=== PATIENT | male | born 1950 | race Caucasian/White ===

== ENCOUNTER 2017-05-24 13:30 | Inpatient (IN) ==
[2017-05-24 17:03] LABS: MANUAL DIFF NEEDED? NO
--- NOTE | 2017-05-24 17:05 | Diag Imaging Result Doc PS360 ---
EXAM: CHEST-PORTABLE HISTORY: dyspnea TECHNIQUE: Portable upright COMPARISON: None. FINDINGS: Sternal wires are present. The lungs are well expanded. The heart is borderline mildly prominent. The vessels are not distended. No consolidation. No pleural effusions identified. IMPRESSION: Negative chest. Electronically signed by Agapito Tamayo 05/24/2017 5:03 PM
[2017-05-24 17:08] LABS: BASO% 0.3 % (0.0-0.8); EOS# 0.57 X1000 (0.0-0.7); HEMATOCRIT 41.4 % (42.0-52.0); IMM GRAN# 0.05 X1000 (0.0-0.04); IMM GRAN% 0.5 % (0.0-0.5); LYMPH# 1.85 X1000 (1.2-3.4); LYMPH% 19.4 % (20.5-51.1); MCH 27.5 PG (27-31); MCHC 33.8 g/dL (33-37); MCV 81.2 FL (81-99); MONO# 0.65 X1000 (0.11-0.59); MONO% 6.8 % (1.7-9.3); MPV 8.8 FL (7.4-10.4); PLT 310 X1000 (130-400)
[2017-05-24 17:19] LABS: HEMOGLOBIN A1C 8.6 % (4.8-6.0)
[2017-05-24 17:25] LABS: ALBUMIN 3.4 g/dL (3.5-5.0); CALCIUM 9.2 mg/dL (8.8-10.2); POTASSIUM 3.9 mmol/L (3.5-5.1); TOTAL BILIRUBIN 0.46 mg/dL (0.20-1.00); TOTAL PROTEIN 7.6 g/dL (6.3-8.3)
[2017-05-24 17:40] LABS: FREE T4 1.29 ng/dL (0.93-1.70)
[2017-05-24] MEDS: DILAUDID IV PRN (18:04)
[2017-05-24 18:08] LABS: VITAMIN D 25 HYDROXY 27.8 NG/DL
[2017-05-24 18:10] LABS: SED RATE 40 mm/hr (0-15)
[2017-05-24] MEDS ORDERED: VANCOMYCIN IV PER PHARMACY MISC SCH (18:15)
[2017-05-24] MEDS: TYLENOL PO PRN (19:02)
[2017-05-24] MEDS: ZOSYN 3.375 GM in NS 50 ML IV SCH (19:02)
[2017-05-24 19:40] LABS: URINE SOURCE CLEAN CATCH
[2017-05-24 19:49] LABS: BILIRUBIN URINE NEGATIVE (NEGATIVE); BLOOD URINE TRACE (NEGATIVE); COLOR YELLOW; GLUCOSE URINE NEGATIVE (NEGATIVE); LEUKOCYTES URINE NEGATIVE (NEGATIVE); NITRITE URINE NEGATIVE (NEGATIVE); PH URINE 5.5; PROTEIN URINE 100 mg/dL (NEGATIVE); SP GRAVITY URINE 1.017; TURBIDITY URINE CLEAR (CLEAR); UROBILINOGEN URINE NORMAL (NORMAL)
[2017-05-24 19:50] LABS: UR EPITHELIAL CELLS <10 /HPF (<10); URINE BACTERIA NEGATIVE /HPF; URINE MICRO REVIEW NEEDED? YES; URINE RBC <10 /HPF (<10); URINE WBC <10 /HPF (<10)
[2017-05-24 20:00] LABS: UR CREAT RANDOM 138.1 mg/dL (14-26); UR PROT RANDOM 120.7 mg/dL
[2017-05-24] MEDS ORDERED: VANCOMYCIN 1 GM/NS 1 GM/250 ML IVPB IV ONE (20:00)
[2017-05-24 20:26] LABS: URINE CRYSTALS CA OXALATE PRESENT
[2017-05-24] MEDS ORDERED: SODIUM CHLORIDE 0.9% 10 ML ONE (21:56)
[2017-05-24] MEDS: BENADRYL IV PRN (22:06)
[2017-05-24] MEDS: APRESOLINE PO SCH (22:15)
[2017-05-24] MEDS: COREG PO SCH (22:17)
[2017-05-24] MEDS: LIPITOR PO SCH (22:17)
[2017-05-24] MEDS: COLACE PO SCH (22:19)
[2017-05-24] MEDS: ZYLOPRIM PO SCH (22:20)
[2017-05-24] MEDS ORDERED: INSULIN PEN NEEDLES ONE (22:33)
[2017-05-24] MEDS: HUMULIN R SUBQ SCH (22:33)
[2017-05-24] MEDS: LANTUS SUBQ SCH (22:34)
[2017-05-25] MEDS: TYLENOL PO PRN ×3 (00:58→21:42)
[2017-05-25] MEDS: ZOSYN 3.375 GM in NS 50 ML IV SCH ×3 (00:59→12:25)
[2017-05-25 05:49] LABS: MANUAL DIFF NEEDED? NO
[2017-05-25 06:00] LABS: BASO% 0.4 % (0.0-0.8); EOS# 0.57 X1000 (0.0-0.7); EOS% 6.8 % (0.0-10.0); HEMATOCRIT 38.8 % (42.0-52.0); HEMOGLOBIN 12.9 g/dL (14.0-18.0); IMM GRAN# 0.03 X1000 (0.0-0.04); IMM GRAN% 0.4 % (0.0-0.5); LYMPH# 1.78 X1000 (1.2-3.4); LYMPH% 21.2 % (20.5-51.1); MCH 27.3 PG (27-31); MCHC 33.2 g/dL (33-37); MONO# 0.77 X1000 (0.11-0.59); MONO% 9.2 % (1.7-9.3); MPV 9.2 FL (7.4-10.4); PLT 265 X1000 (130-400); RBC 4.73 XMIL (4.7-6.1)
[2017-05-25 06:14] LABS: CALCIUM 8.6 mg/dL (8.8-10.2); POTASSIUM 4.2 mmol/L (3.5-5.1)
[2017-05-25] MEDS: HUMULIN R SUBQ SCH ×4 (06:54→20:12)
[2017-05-25] MEDS: ASPIRIN EC PO SCH (09:04)
[2017-05-25] MEDS: IMDUR PO SCH (09:04)
[2017-05-25] MEDS: EFFIENT PO SCH (09:05)
[2017-05-25] MEDS: COLACE PO SCH ×2 (09:06→20:12)
[2017-05-25] MEDS: COREG PO SCH ×2 (09:06→20:09)
[2017-05-25] MEDS: BENADRYL IV PRN ×4 (09:07→22:47)
[2017-05-25] MEDS: APRESOLINE PO SCH ×3 (09:07→20:09)
[2017-05-25] MEDS: NORVASC PO SCH (09:07)
[2017-05-25] MEDS: MIRALAX PO SCH (09:37)
[2017-05-25] MEDS ORDERED: APRESOLINE IV PRN (14:07)
[2017-05-25] MEDS: MAXIPIME 2 GM in NS 100 ML IV SCH (17:04)
[2017-05-25] MEDS: DILAUDID IV PRN (17:39)
[2017-05-25] MEDS: CARDENE 20 MG/NS 20 MG/200 ML PIGGYBACK IV SCH ×4 (18:21→23:45)
[2017-05-25] MEDS ORDERED: VANCOMYCIN 1,500 MG in NS 250 ML IV SCH (20:00)
[2017-05-25] MEDS: ZYLOPRIM PO SCH (20:09)
[2017-05-25] MEDS: LIPITOR PO SCH (20:10)
[2017-05-25] MEDS: ZYVOX PO SCH (20:10)
[2017-05-25] MEDS: LANTUS SUBQ SCH (20:10)
[2017-05-26] MEDS: CARDENE 20 MG/NS 20 MG/200 ML PIGGYBACK IV SCH ×10 (01:12→23:10)
[2017-05-26] MEDS: MAXIPIME 2 GM in NS 100 ML IV SCH ×2 (03:12→16:22)
[2017-05-26] MEDS: TYLENOL PO PRN ×2 (03:25→20:17)
[2017-05-26] MEDS: BENADRYL IV PRN ×4 (03:43→22:30)
[2017-05-26] MEDS: DILAUDID IV PRN ×2 (04:27→21:23)
[2017-05-26 04:29] LABS: MANUAL DIFF NEEDED? NO
[2017-05-26 04:32] LABS: BASO% 0.3 % (0.0-0.8); EOS# 0.65 X1000 (0.0-0.7); EOS% 7.1 % (0.0-10.0); HEMATOCRIT 39.6 % (42.0-52.0); HEMOGLOBIN 13.6 g/dL (14.0-18.0); IMM GRAN# 0.02 X1000 (0.0-0.04); IMM GRAN% 0.2 % (0.0-0.5); LYMPH# 2.11 X1000 (1.2-3.4); LYMPH% 22.9 % (20.5-51.1); MCH 27.8 PG (27-31); MCHC 34.3 g/dL (33-37); MCV 80.8 FL (81-99); MONO# 0.66 X1000 (0.11-0.59); MONO% 7.2 % (1.7-9.3); MPV 8.9 FL (7.4-10.4); NEUT% 62.3 % (42.2-75.2); PLT 285 X1000 (130-400)
[2017-05-26 04:50] LABS: ALBUMIN 3.1 g/dL (3.5-5.0); CALCIUM 8.6 mg/dL (8.8-10.2); POTASSIUM 3.9 mmol/L (3.5-5.1)
--- NOTE | 2017-05-26 05:32 | EKG Report ---
Test Performed on : 05/24/2017 6:21:01 PM Test Reason : tachycardia Blood Pressure : / mmHG Vent. Rate : 071 BPM Atrial Rate : 071 BPM P-R Int : 170 ms QRS Dur : 086 ms QT Int : 424 ms P-R-T Axes : 068 -34 113 degrees QTc Int : 460 ms Sinus rhythm. with occasional premature ventricular complexes. Left axis deviation Left ventricular hypertrophy with repolarization abnormality Abnormal ECG No previous ECGs available Confirmed by Pino KLINE, Eldon Kingsley ([id number]) on 05/26/2017 8:50:17 PM
[2017-05-26] MEDS: HUMULIN R SUBQ SCH ×4 (05:59→20:49)
[2017-05-26] MEDS: NORVASC PO SCH (08:30)
[2017-05-26] MEDS: ASPIRIN EC PO SCH (08:30)
[2017-05-26] MEDS: APRESOLINE PO SCH ×3 (08:31→20:18)
[2017-05-26] MEDS: COREG PO SCH ×2 (08:31→20:18)
[2017-05-26] MEDS: ZYVOX PO SCH ×2 (08:31→20:17)
[2017-05-26] MEDS: IMDUR PO SCH (08:31)
[2017-05-26] MEDS: HYDROCORTISONE 0.5% CREAM TOP SCH ×2 (08:32→20:50)
[2017-05-26] MEDS: EFFIENT PO SCH (08:57)
[2017-05-26] MEDS: COLACE PO SCH ×2 (09:07→20:50)
[2017-05-26] MEDS: MIRALAX PO SCH (09:07)
[2017-05-26] MEDS: LOVENOX SUBQ SCH (09:07)
--- NOTE | 2017-05-26 10:03 | Diag Imaging Result Doc PS360 ---
EXAM: US RENAL 2 (RETROPER) COMPLETE INDICATION: beck/arf TECHNIQUE: COMPARISON: None. FINDINGS: The kidneys are grossly normal in echotexture with no discrete renal mass or hydronephrosis. The right kidney measures 11.5 cm and the left kidney measures 11.6 cm in the greatest longitudinal axes. The urinary bladder is partially distended and is grossly unremarkable. IMPRESSION: Unremarkable renal ultrasound. Electronically signed by Timothy Billingsley 05/26/2017 10:01 AM
[2017-05-26] MEDS: HYDROXYZINE PO PRN (13:59)
[2017-05-26] MEDS: LIPITOR PO SCH (20:17)
[2017-05-26] MEDS: ZYLOPRIM PO SCH (20:18)
[2017-05-26] MEDS: LANTUS SUBQ SCH (20:23)
[2017-05-27] MEDS: HYDROXYZINE PO PRN (00:41)
[2017-05-27] MEDS: DILAUDID IV PRN ×3 (00:41→15:46)
[2017-05-27] MEDS: BENADRYL IV PRN ×3 (01:42→20:21)
[2017-05-27] MEDS: CARDENE 20 MG/NS 20 MG/200 ML PIGGYBACK IV SCH ×6 (01:43→13:31)
[2017-05-27] MEDS: ZOFRAN IV PRN ×2 (02:12→08:12)
[2017-05-27] MEDS: MAXIPIME 2 GM in NS 100 ML IV SCH ×2 (03:59→15:41)
[2017-05-27 06:18] LABS: MANUAL DIFF NEEDED? NO
[2017-05-27 06:25] LABS: BASO% 0.3 % (0.0-0.8); EOS# 0.68 X1000 (0.0-0.7); EOS% 6.8 % (0.0-10.0); HEMATOCRIT 38.7 % (42.0-52.0); HEMOGLOBIN 13.1 g/dL (14.0-18.0); IMM GRAN# 0.02 X1000 (0.0-0.04); IMM GRAN% 0.2 % (0.0-0.5); LYMPH# 1.97 X1000 (1.2-3.4); LYMPH% 19.8 % (20.5-51.1); MCH 27.3 PG (27-31); MCHC 33.9 g/dL (33-37); MCV 80.6 FL (81-99); MONO# 0.65 X1000 (0.11-0.59); MONO% 6.5 % (1.7-9.3); NEUT% 66.4 % (42.2-75.2); PLT 293 X1000 (130-400)
[2017-05-27] MEDS: HUMULIN R SUBQ SCH ×4 (06:25→20:09)
[2017-05-27 06:57] LABS: ALBUMIN 2.7 g/dL (3.5-5.0); POTASSIUM 3.3 mmol/L (3.5-5.1)
[2017-05-27 07:03] LABS: CALCIUM 7.1 mg/dL (8.8-10.2)
[2017-05-27] MEDS ORDERED: LASIX IV ONE (07:24)
[2017-05-27] MEDS: APRESOLINE PO SCH ×3 (07:53→20:05)
[2017-05-27] MEDS: ZYVOX PO SCH ×2 (07:59→20:05)
[2017-05-27] MEDS: NORVASC PO SCH (07:59)
[2017-05-27] MEDS: PRINIVIL PO SCH (07:59)
[2017-05-27] MEDS: IMDUR PO SCH (08:00)
[2017-05-27] MEDS: EFFIENT PO SCH (08:00)
[2017-05-27] MEDS: ASPIRIN EC PO SCH (08:00)
[2017-05-27] MEDS: COREG PO SCH ×2 (08:00→20:06)
[2017-05-27] MEDS: HYDROCORTISONE 0.5% CREAM TOP SCH ×2 (08:02→22:46)
[2017-05-27] MEDS: LOVENOX SUBQ SCH (08:06)
[2017-05-27] MEDS: MIRALAX PO SCH (08:06)
[2017-05-27] MEDS: COLACE PO SCH ×3 (08:06→20:12)
--- NOTE | 2017-05-27 08:17 | Diag Imaging Result Doc PS360 ---
EXAM: CHEST-1 VIEW HISTORY: sob TECHNIQUE: Portable upright AP COMPARISON: 05/24/2017 FINDINGS: The lungs are well expanded. The heart is mildly prominent. There are sternal wires and surgical clips. The vessels are not distended. There are no infiltrates. No effusion identified. IMPRESSION: Stable chest. Electronically signed by Agapito Taamyo 05/27/2017 8:14 AM
[2017-05-27] MEDS ORDERED: KLOR-CON PO ONE (10:39)
[2017-05-27] MEDS ORDERED: NEUTRA-PHOS PO ONE (12:52)
[2017-05-27] MEDS: LASIX PO SCH ×2 (14:07→20:21)
[2017-05-27] MEDS: LIPITOR PO SCH (20:04)
[2017-05-27] MEDS: ZYLOPRIM PO SCH (20:06)
[2017-05-27] MEDS: TYLENOL PO PRN (20:21)
[2017-05-27] MEDS: LANTUS SUBQ SCH (22:44)
[2017-05-28] MEDS: DILAUDID IV PRN (04:15)
[2017-05-28] MEDS: MAXIPIME 2 GM in NS 100 ML IV SCH ×2 (04:15→15:18)
[2017-05-28] MEDS: BENADRYL IV PRN (04:31)
[2017-05-28 05:56] LABS: MANUAL DIFF NEEDED? NO
[2017-05-28 06:03] LABS: BASO% 0.2 % (0.0-0.8); EOS% 5.1 % (0.0-10.0); HEMATOCRIT 36.6 % (42.0-52.0); HEMOGLOBIN 12.3 g/dL (14.0-18.0); IMM GRAN# 0.03 X1000 (0.0-0.04); IMM GRAN% 0.3 % (0.0-0.5); LYMPH# 1.62 X1000 (1.2-3.4); LYMPH% 16.5 % (20.5-51.1); MCH 27.4 PG (27-31); MCHC 33.6 g/dL (33-37); MCV 81.5 FL (81-99); MONO# 0.82 X1000 (0.11-0.59); MONO% 8.3 % (1.7-9.3); MPV 9.3 FL (7.4-10.4); NEUT% 69.6 % (42.2-75.2); PLT 273 X1000 (130-400); RBC 4.49 XMIL (4.7-6.1)
[2017-05-28 06:07] LABS: INR 1.23; PROTIME 13.1 Seconds (9.2-11.7)
[2017-05-28] MEDS: HUMULIN R SUBQ SCH ×4 (06:24→22:27)
[2017-05-28 06:26] LABS: ALBUMIN 3.2 g/dL (3.5-5.0); CALCIUM 8.1 mg/dL (8.8-10.2); POTASSIUM 4.4 mmol/L (3.5-5.1)
[2017-05-28] MEDS: LASIX PO SCH ×2 (08:15→22:25)
[2017-05-28] MEDS: ASPIRIN EC PO SCH (08:15)
[2017-05-28] MEDS: EFFIENT PO SCH (08:15)
[2017-05-28] MEDS: NORVASC PO SCH (08:15)
[2017-05-28] MEDS: ZYVOX PO SCH ×2 (08:15→22:26)
[2017-05-28] MEDS: COREG PO SCH ×2 (08:15→22:26)
[2017-05-28] MEDS: PRINIVIL PO SCH (08:15)
[2017-05-28] MEDS: APRESOLINE PO SCH ×3 (08:16→22:26)
[2017-05-28] MEDS: HYDROCORTISONE 0.5% CREAM TOP SCH ×2 (08:16→22:26)
[2017-05-28] MEDS: IMDUR PO SCH (08:16)
[2017-05-28] MEDS: COLACE PO SCH ×3 (08:31→22:30)
[2017-05-28] MEDS: LOVENOX SUBQ SCH (08:31)
[2017-05-28] MEDS: MIRALAX PO SCH (08:31)
[2017-05-28] MEDS: TYLENOL PO PRN ×2 (10:48→20:06)
[2017-05-28] MEDS: ZYLOPRIM PO SCH (22:25)
[2017-05-28] MEDS: LIPITOR PO SCH (22:25)
[2017-05-28] MEDS: LANTUS SUBQ SCH (22:27)
[2017-05-29] MEDS: TYLENOL PO PRN ×2 (04:04→09:34)
[2017-05-29] MEDS: MAXIPIME 2 GM in NS 100 ML IV SCH (05:43)
[2017-05-29 06:16] LABS: HEMOGLOBIN 12.8 g/dL (14.0-18.0); MCH 27.9 PG (27-31); MCHC 33.7 g/dL (33-37); MCV 82.8 FL (81-99); MPV 9.3 FL (7.4-10.4); RBC 4.59 XMIL (4.7-6.1)
[2017-05-29 06:41] LABS: ALBUMIN 3.2 g/dL (3.5-5.0); CALCIUM 8.4 mg/dL (8.8-10.2); POTASSIUM 3.9 mmol/L (3.5-5.1)
[2017-05-29 08:03] VITALS: BP 167/74
[2017-05-29] MEDS: APRESOLINE PO SCH (09:24)
[2017-05-29] MEDS: HUMULIN R SUBQ SCH (09:24)
[2017-05-29] MEDS: LASIX PO SCH (09:25)
[2017-05-29] MEDS: ASPIRIN EC PO SCH (09:25)
[2017-05-29] MEDS: PRINIVIL PO SCH (09:25)
[2017-05-29] MEDS: ZYVOX PO SCH (09:25)
[2017-05-29] MEDS: NORVASC PO SCH (09:25)
[2017-05-29] MEDS: IMDUR PO SCH (09:25)
[2017-05-29] MEDS: COREG PO SCH (09:25)
[2017-05-29] MEDS: MIRALAX PO SCH (09:26)
[2017-05-29] MEDS: COLACE PO SCH (09:27)
[2017-05-29] MEDS: LOVENOX SUBQ SCH (09:27)
[2017-05-29] MEDS: EFFIENT PO SCH (09:31)
== END 2017-05-29 13:12 | disposition home or self-care (01) ==
LOC: DIRADM 13:30 → 4N 15:29 → ICU 05-25 18:17 → 4N 05-28 10:16
PROVIDERS: ATTEND Internal Medicine